=== PATIENT | male | born 1990 | race African-American/Black ===

== ENCOUNTER 2018-12-28 08:12 | Emergency (ER) | payer SELFPAY ==
[~2018-12-28] VITALS: Ht 167.6 cm; Wt 78.0 kg
--- NOTE | 2018-12-28 08:56 | NUR ---
pt setting in bed talking on cell phone, symptoms have improved, pt breathing has improved, pt shows no s/s of distress, pt has no c/o at this time, vs assessed and stable, will continue to monitor
--- NOTE | 2018-12-28 09:04 | ED Psychosocial ---
General Chief Complaint: Psych/Social Disorder Stated Complaint: ANXIETY Nursing Triage Note: pt was late to work this morning, once arrived at work pt started to breathe heavily and thinks he is having a panic attack Source: patient Exam Limitations: no limitations History of Present Illness Date Seen by Provider: Dec 28, 2018 Time Seen by Provider: 08:20 Initial Comments By EMS with report of anxiety attacks and hyperventilation. Apparently he is likely to work and very concerned about his job. He started feeling very anxious and started breathing hard. Ultimately his hand started cramping and tingling and face was tingling and feet were cramping and tingling as well. EMS did initiate calling measures and ultimately transferred him here. O2 sats 100% in the field with heart rate at 100 with end-tidal CO2 noted to be 8. This did improve to 13 with calming. Timing/Duration: this morning Severity: moderate Associated Symptoms: anxiety Allergies and Home Medications Patient Home Medication List Home Medication List Reviewed: Yes Review of Systems Constitutional: see HPI Respiratory: see HPI; No cough; other (hyperventilation) Cardiovascular: No chest pain; palpitations Skin: no symptoms reported Psychiatric/Neurological: See HPI, Anxiety, Tingling Past [id number] Hx Past Med/Social Hx: Reviewed Nursing Past Med/Soc Hx Patient Social History Alcohol Use: Denies Use Recreational Drug Use: No Smoking Status: Never a Smoker Recent Foreign Travel: No Contact w/Someone Who Travel: No Recent Infectious Disease Expo: No Past Medical History Surgeries: No Respiratory: No Cardiac: No Neurological: No Genitourinary: No Gastrointestinal: No Musculoskeletal: No Endocrine: No HEENT: No Family Medical History Reviewed Nursing Family Hx No Pertinent Family Hx Physical Exam Vital Signs - First Documented 12/28/18 08:15 Temp 97.7 Pulse 104 Resp 48 B/P (MAP) 120/54 (76) Capillary Refill : Less Than 3 Seconds Height, Weight, BMI Height: 5'6.00" Weight: 172lbs. oz. [id number]; BMI Method:Stated General Appearance: WD/WN, no apparent distress Neck: full range of motion, supple Respiratory: lungs clear, normal breath sounds, other (rapid breathing) Cardiovascular: no murmur, tachycardia Gastrointestinal: non tender, soft Extremities: normal range of motion, non-tender Neurologic/Psychiatric: alert, normal mood/affect Appearance/Memory: appropriate appearance, appropriate insight Behavior/Eye Contact: cooperative, good eye contact, normal speech Thoughts/Hallucinations: other (anxious) Skin: normal color, warm/dry Progress/Results/Core Measures Results/Orders Vital Signs/I&O 12/28/18 08:15 Temp 97.7 Pulse 104 Resp 48 B/P (MAP) 120/54 (76) Blood Pressure Mean: 76 Progress Progress Note : Progress Note Seen and evaluated. Calling measures continued. Placed on end-tidal CO2. We will use biofeedback with CO2 monitor to show respiratory rate and end-tidal CO2. Patient is coughing and feeling better. Monitor patient. 0905: End-tidal CO2 normal range and patient doing much better with heart rate 75. No further indic ation for evaluation. Patient is comfortable going home. Discharged home with return precautions. Patient verbalize understanding instructions and agreement with plan. Departure Impression Primary Impression: Anxiety Additional Impression: Hyperventilation syndrome Disposition: 01 HOME, SELF-CARE Condition: Improved Departure-Patient Inst. Decision time for Depature: 09:05 Patient Instructions: Anxiety, Adult (DC), Hyperventilation Add. Discharge Instructions: All discharge instructions reviewed with patient and/or family. Voiced understanding. Drink plenty of fluids and eat a normal diet. If you feel one of these attacks coming on, you should try the calming measures that we did today. If you have continued problems with anxiety, he should follow up with your doctor for recheck and further evaluation and for possible other options for controlling anxiety. Return for increasing anxiety, weakness, breathing problems or other concerns as needed. MARIAM LONG MD Dec 28, 2018 09:04
[2018-12-28 09:24] VITALS: BP 120/54
== END 2018-12-28 09:24 | disposition home or self-care (01) ==
LOC: ER 08:14
DX: F41.9 Anxiety disorder, unspecified (principal); F45.8 Other somatoform disorders
CPT/HCPCS: 99284